=== PATIENT | male | born 1955 | race African-American/Black ===

== ENCOUNTER → 2017-04-12 | Outpatient (CLI) | payer OTHER ==
--- NOTE | 2017-04-12 16:47 | RADIOLOGY REPORT (SQ) ---
EXAM DESCRIPTION: C SP 4 OR 5 VIEWS COMPLETED DATE/TIME: 04/12/2017 4:13 pm REASON FOR STUDY: CERVICALGIA M54.2 CERVICALGIA COMPARISON: None. NUMBER OF VIEWS: Five views. TECHNIQUE: AP, lateral, obliques and odontoid radiographic images acquired of the cervical spine. LIMITATIONS: None. FINDINGS: MINERALIZATION: Normal. ALIGNMENT: Anatomic. VERTEBRAE: Vertebral bodies of normal height. DISCS: Disc spaces are narrowed at C3-4, C5-6 and C6-7. Bridging osteophytes are present the lower 2 levels. Uncovertebral osteophytes are present at the lower levels. FORAMINA: There is narrowing of the right neural foramina at C3-4, C5-6, and C6-7 secondary to uncove rtebral osteophytes. Similar findings are seen in the left neural foramina. LATERAL AND POSTERIOR ELEMENTS: Facets, lateral masses and spinous processes without significant find ings. HARDWARE: None in the spine. SOFT TISSUES: No masses or calcifications. Lung apices clear. OTHER: No other significant finding. IMPRESSION: Degenerative disc disease with spondylosis as described. TECHNICAL DOCUMENTATION: JOB ID: [id number] [employer] All Rights Reserved
== END ==
LOC: OD 15:56
PROVIDERS: ATTEND Family Medicine
DX: M54.2 Cervicalgia (principal); M50.323 Other cervical disc degeneration at C6-C7 level
CPT/HCPCS: 72050

== ENCOUNTER → 2017-11-28 | Outpatient (CLI) | payer OTHER ==
--- NOTE | 2017-11-28 17:05 | RADIOLOGY REPORT (SQ) ---
EXAM DESCRIPTION: U/S THYROID/SFT TISS HD NECK COMPLETED DATE/TIME: 11/28/2017 2:43 pm REASON FOR STUDY: LOCALIZED SWELLING MASS AND LUMP R22.9 LOCALIZED SWELLING, MASS AND LUMP, UNSPECI FIED COMPARISON: None. TECHNIQUE: Dynamic and static salas-scale images acquired of the neck soft tissues in the area of con cern, left upper neck near the mandibular angle. Selected additional color/power Doppler images elijah rded. All images stored to PACS. LIMITATIONS: None. FINDINGS: Patient indicates a painful area of left upper neck, at about the level of the mastoid cristy nence/mandibular angle. Ultrasound of this area in comparison imaging of the right side was performe d. No discrete cystic or solid lesions. No asymmetry of the sternocleidomastoid muscle. No adenopathy. IMPRESSION: No focal ultrasound findings in the area of left upper neck pain TECHNICAL DOCUMENTATION: JOB ID: [id number] [employer]- All Rights Reserved Reading location - IP/workstation name: [facility]
== END ==
LOC: RAD 13:38
PROVIDERS: ATTEND Family Medicine
DX: R22.9 Localized swelling, mass and lump, unspecified (principal)
CPT/HCPCS: 76536